=== PATIENT | female | born 1980 | race Caucasian/White ===

== ENCOUNTER 2024-01-28 09:38 | Emergency (ER) | payer BC, SELFPAY ==
[2024-01-28 10:05] VITALS: BP 115/53
--- NOTE | 2024-01-28 10:50 | ED.MUSCINJ ---
HPI-Injury
General
Chief Complaint: Musculo-Skeletal Complaint
Source: patient
Exam Limitations: none
Time Seen by Provider: 01/28/24 10:35
History of Present Illness-Injury
Initial Injury comments:
43-year-old female presents complaining of left knee discomfort starting this morning. She was running and felt pressure in her knee. She tried to bend her knee then she felt a click. Since then she has had pain inferior to the kneecap.
Past History
Past History
ED Past Medical History: None
ED Past Surgical History:
Social History
Tobacco: Non-smoker
Alcohol: None
Drug: None
Personal:
Living: with family
Employment: Employed
Phy Exam
Physical Exam
Physical Exam:
General: Well-appearing female no acute respiratory distress
Musculoskeletal exam: Left knee tender inferiorly to the patella. Able to straight leg raise no deformity posterior joint line nontender knee is stable ligament exam
Skin: Intact without laceration
Injury Course
Orders/Labs/Results
Orders:
Orders
01/28/24 10:07
Knee, Left 4 or More Views [CR Knee - Left 4 Or More View*] Urgent
Comment:
Reason For Exam: left knee pain while running heard pop
01/28/24 10:55
Knee Immobilizer Left-Treatmen ONCE
MDM/Problems Addressed
Differential Diagnosis Includes:
Left knee pain worsening with running since the weekend but worse today. Consider strain versus fracture versus bursitis x-rays of the left knee were ordered through triage personally visualized by me and demonstrate a nondisplaced fracture of the
inferior pole of the patella.
Placed in a knee immobilizer and will recommend follow-up with orthopedics.
*Critical Care Note
Total Time (30-74mins, 75-104mins- exclusive of procedures): Not Applicable
ED Attending Note
-
Portions of this chart may have been created with voice recognition software.� Occasional wrong word or��sound alike� substitutions may have occurred due to the inherent limitations of voice recognition software.
Discharge Plan
Departure
Patient Disposition: Home (Routine Discharge)
Date of Disposition: 01/28/24
Time of Disposition: 10:58
Patient with high blood pressure during this ER visit?: No
Discharge Problem:
Fracture, patella
Instructions: Knee Immobilizer (DC)
Prescriptions:
No Action
mometasone 50 mcg/actuation spray,non-aerosol
2 spray intranasal DAILY Qty: 17 0RF
amoxicillin-pot clavulanate 875-125 mg tablet
1 tab PO BID Qty: 28 0RF
Referrals:
Bob Acuna MD [Active] -
Bob Zuniga MD [Family Provider] -
Activity Restrictions/Additional Instructions:
Use brace at all times when ambulating. You may use ibuprofen or Tylenol for pain. Please follow-up with orthopedics for next available appointment for further evaluation
Interventions
Interventions:
*ED COVID-19 Vaccine History Last Done: 01/28/24 10:05
Discharge Date and Time
Print Language: [place]
== END 2024-01-28 11:25 | disposition home or self-care (01) ==
LOC: EMR 09:38
PROVIDERS: EMERGENCY PHYSICIAN Emergency Medicine; FAMILY PHYSICIAN Family Medicine
DX: S82.002A Unspecified fracture of left patella, initial encounter for closed fracture (principal); X58.XXXA Exposure to other specified factors, initial encounter; Y93.02 Activity, running
CPT/HCPCS: 99283; 29505; 73564

== ENCOUNTER → 2024-02-11 08:30 | Outpatient (REF) | payer BC, SELFPAY | LOC: HWRAD 08:30 | PROVIDERS: ATTENDING PHYSICIAN Orthopaedic Surgery; FAMILY PHYSICIAN Family Medicine | DX: Z13.820 Encounter for screening for osteoporosis (principal) | CPT/HCPCS: 77080 ==